=== PATIENT | female | born 1960 | race Caucasian/White ===

== ENCOUNTER → 2017-10-25 | Outpatient (CLI) | payer BC | LOC: CFH 13:25 | PROVIDERS: ATTEND Family Medicine | DX: R07.9 Chest pain, unspecified (principal) | CPT/HCPCS: 71046 ==

== ENCOUNTER 2018-03-01 23:51 | Emergency (ER) | payer BC ==
[~2018-03-01] VITALS: Ht 157.5 cm; Wt 65.0 kg
[2018-03-02] MEDS ORDERED: MORPHINE SULFATE 4 MG/ML, 1ML ONE (00:14)
[2018-03-02] MEDS ORDERED: PROCHLORPERAZINE 5 MG/ML, 2ML ONE (00:24)
[2018-03-02] MEDS ORDERED: PROCHLORPERAZINE 5 MG/ML, 2ML IVPush ONE (00:30)
[2018-03-02] MEDS ORDERED: MORPHINE SULFATE 4 MG/ML, 1ML IVPush PRN (00:30)
[2018-03-02 00:32] LABS: BASOPHILS # (AUTO) 0.05 x10^3/uL (0-0.1); BASOPHILS % (AUTO) 1 % (0-1); EOSINOPHILS # (AUTO) 0.27 x10^3/uL (0-0.4); EOSINOPHILS % (AUTO) 3 % (1-7); LYMPHOCYTES # (AUTO) 2.84 x10^3/uL (1-3.4); LYMPHOCYTES % (AUTO) 27 % (22-44); MD NO; MEAN CORPUSCULAR HEMOGLOBIN 28.5 pg (27.0-34.8); MEAN CORPUSCULAR HGB CONC 33.1 g/dL (32.4-35.8); MEAN CORPUSCULAR VOLUME 86.3 fL (80-100); MEAN PLATELET VOLUME 9.4 fL (7.4-10.4); MONOCYTES # (AUTO) 0.62 x10^3/uL (0.2-0.8); MONOCYTES % (AUTO) 6 % (2-9); NEUTROPHILS # (AUTO) 6.94 x10^3/uL (1.8-6.8); NEUTROPHILS % (AUTO) 65 % (42-75); PLATELET COUNT 221 x10^3/uL (130-400); RED BLOOD COUNT 4.93 x10^6/uL (3.82-5.3); RED CELL DISTRIBUTION WIDTH 13.7 % (9.6-15.2)
[2018-03-02 00:44] LABS: ALANINE AMINOTRANSFERASE 23 U/L (12-78); ALBUMIN 3.4 g/dL (3.4-5.0); ANION GAP 8 mmol/L (5-15); CALCIUM 8.7 mg/dL (8.5-10.1); CHLORIDE 111 mmol/L (98-107); CREATININE 0.91 mg/dL (0.55-1.02)
[2018-03-02 00:47] LABS: ALKALINE PHOSPHATASE 82 U/L (45-117); BILIRUBIN,TOTAL 0.2 mg/dL (0.2-1.0); TOTAL PROTEIN 6.9 g/dL (6.4-8.2)
[2018-03-02 02:03] LABS: CULTURE INDICATED? YES; MICROSCOPIC INDICATED
[2018-03-02 02:13] VITALS: BP 100/49
== END 2018-03-02 03:21 | disposition home or self-care (01) ==
LOC: ED 23:59
DX: N13.2 Hydronephrosis with renal and ureteral calculous obstruction (principal); F17.200 Nicotine dependence, unspecified, uncomplicated
CPT/HCPCS: 36415; 74176; 80053; 81001; 83690; 85025; 87086; 96374; 96375; 99285; J0780

== ENCOUNTER 2018-04-23 00:08 | Inpatient (IN) | payer BC ==
[~2018-04-23] VITALS: Ht 160 cm; Wt 68.6 kg
[2018-04-23 01:00] LABS: BASOPHILS # (AUTO) 0.02 x10^3/uL (0-0.1); BASOPHILS % (AUTO) 0 % (0-1); EOSINOPHILS # (AUTO) 0.34 x10^3/uL (0-0.4); EOSINOPHILS % (AUTO) 3 % (1-7); LYMPHOCYTES # (AUTO) 2.37 x10^3/uL (1-3.4); LYMPHOCYTES % (AUTO) 21 % (22-44); MD NO; MEAN CORPUSCULAR HEMOGLOBIN 28.8 pg (27.0-34.8); MEAN CORPUSCULAR HGB CONC 33.4 g/dL (32.4-35.8); MEAN CORPUSCULAR VOLUME 86.1 fL (80-100); MEAN PLATELET VOLUME 9.1 fL (7.4-10.4); MONOCYTES # (AUTO) 0.51 x10^3/uL (0.2-0.8); MONOCYTES % (AUTO) 4 % (2-9); NEUTROPHILS # (AUTO) 8.32 x10^3/uL (1.8-6.8); NEUTROPHILS % (AUTO) 72 % (42-75); PLATELET COUNT 225 x10^3/uL (130-400); RED BLOOD COUNT 5.05 x10^6/uL (3.82-5.3); RED CELL DISTRIBUTION WIDTH 14.5 % (9.6-15.2)
[2018-04-23] MEDS ORDERED: SODIUM CHLORIDE 0.9% 1,000ML IV ONE (01:00)
[2018-04-23] MEDS ORDERED: KETOROLAC 30 MG/1 ML IVPush ONE (01:00)
[2018-04-23] MEDS ORDERED: MORPHINE SULFATE 4 MG/ML, 1ML IVPush PRN (01:00)
[2018-04-23] MEDS ORDERED: SODIUM CHLORIDE FLUSH 10ML SYR IVF ONE (01:00)
[2018-04-23] MEDS ORDERED: ONDANSETRON ODT 4 MG PO ONE (01:00)
[2018-04-23] MEDS ORDERED: ONDANSETRON ODT 4 MG ONE (01:01)
[2018-04-23] MEDS ORDERED: MORPHINE SULFATE 4 MG/ML, 1ML ONE ×2 (01:02→07:56)
[2018-04-23] MEDS ORDERED: KETOROLAC 30 MG/1 ML ONE (01:02)
[2018-04-23 01:11] LABS: ALANINE AMINOTRANSFERASE 24 U/L (12-78); ALBUMIN 3.7 g/dL (3.4-5.0); ANION GAP 7 mmol/L (5-15); CALCIUM 8.8 mg/dL (8.5-10.1); CHLORIDE 111 mmol/L (98-107); CREATININE 0.99 mg/dL (0.55-1.02)
[2018-04-23 01:13] LABS: ALKALINE PHOSPHATASE 90 U/L (45-117); BILIRUBIN,TOTAL 0.1 mg/dL (0.2-1.0); TOTAL PROTEIN 7.2 g/dL (6.4-8.2)
[2018-04-23] MEDS ORDERED: DIPHENHYDRAMINE 50 MG/ML, 1ML ONE (01:20)
[2018-04-23] MEDS ORDERED: DIPHENHYDRAMINE 50 MG/ML, 1ML IVPush ONE (01:30)
[2018-04-23 01:44] LABS: CULTURE INDICATED? YES; MICROSCOPIC INDICATED
[2018-04-23] MEDS ORDERED: ACETAMINOPHEN 325 MG TABLET PO PRN (03:30)
[2018-04-23] MEDS ORDERED: ONDANSETRON ODT 4 MG PO PRN (03:30)
[2018-04-23] MEDS ORDERED: TEMAZEPAM 15 MG CAPSULE PO PRN (03:30)
[2018-04-23] MEDS ORDERED: DOCUSATE 100 MG CAPSULE PO PRN (03:30)
[2018-04-23] MEDS ORDERED: LABETALOL 5MG/ML, 20ML IVPush PRN (03:30)
[2018-04-23 04:48] VITALS: BP 112/65
[2018-04-23] MEDS: POTASSIUM CHLORIDE 20 MEQ in LACTATED RINGERS 1,000 ML IV SCH ×2 (05:50→20:04)
[2018-04-23 06:53] VITALS: BP 110/64
[2018-04-23] MEDS: FAMOTIDINE 20 MG/2 ML IVPush SCH ×2 (08:02→20:04)
[2018-04-23] MEDS: morphine SULFATE 10 MG/ML, 1ML IVPush PRN ×5 (08:02→23:37)
[2018-04-23] MEDS: ONDANSETRON 2MG/ML, 2ML IVPush PRN (08:13)
[2018-04-23 12:33] VITALS: BP 107/59
[2018-04-23] MEDS ORDERED: EPHEDRINE 50 MG/ML, 1ML ONE (15:42)
[2018-04-23] MEDS ORDERED: MIDAZOLAM 1 MG/ML, 2ML ONE (15:45)
[2018-04-23] MEDS ORDERED: FENTANYL PF 100 MCG/2ML ONE ×2 (15:45→17:23)
[2018-04-23] MEDS ORDERED: DEXAMETHASONE 4 MG/ML, 1ML ONE (15:45)
[2018-04-23] MEDS ORDERED: METOCLOPRAMIDE 5 MG/ML, 2ML ONE (15:45)
[2018-04-23] MEDS ORDERED: ONDANSETRON 2MG/ML, 2ML ONE (15:45)
[2018-04-23] MEDS ORDERED: LIDOCAINE-MPF 2% ,5ML ONE (15:49)
[2018-04-23] MEDS ORDERED: PROPOFOL 10 MG/ML, 20ML ONE (15:50)
[2018-04-23] MEDS ORDERED: OMNIPAQUE 350 MG/ML, 50 ML BOTTLE INJ ONE (16:45)
[2018-04-23] MEDS ORDERED: OXYcodone 5 MG/5 ML ORAL.SOL UDC PO PRN (17:00)
[2018-04-23] MEDS ORDERED: METOCLOPRAMIDE 5 MG/ML, 2ML IV PRN (17:00)
[2018-04-23] MEDS ORDERED: ONDANSETRON 2MG/ML, 2ML IVPush PRN (17:00)
[2018-04-23] MEDS ORDERED: PROMETHAZINE 25 MG/ML, 1ML IV PRN (17:00)
[2018-04-23] MEDS ORDERED: hydrALAzine 20 MG/ML, 1ML IV PRN (17:00)
[2018-04-23] MEDS ORDERED: KETOROLAC 30 MG/1 ML IV PRN (17:00)
[2018-04-23] MEDS ORDERED: ALBUTEROL SULFATE 2.5 MG/3 ML NPPB PRN (17:00)
[2018-04-23] MEDS ORDERED: OMNIPAQUE 350 MG/ML, 50 ML BOTTLE ONE (17:00)
[2018-04-23] MEDS ORDERED: MEPERIDINE/PF 25MG/0.5ML IVPush PRN (17:00)
[2018-04-23] MEDS ORDERED: LABETALOL 5MG/ML, 20ML IV PRN (17:00)
[2018-04-23] MEDS ORDERED: HYDROmorphone 1 MG/ML, 1ML IV PRN (17:00)
[2018-04-23] MEDS ORDERED: OXYcodone 5 MG/5 ML ORAL.SOL UDC ONE (17:23)
[2018-04-23] MEDS: FENTANYL PF 100 MCG/2ML IV PRN ×2 (17:28→17:38)
[2018-04-23 19:11] VITALS: BP 131/76
[2018-04-24 00:04] VITALS: BP 131/79
[2018-04-24 03:50] VITALS: BP 138/81
[2018-04-24] MEDS: ONDANSETRON 2MG/ML, 2ML IVPush PRN (03:58)
[2018-04-24] MEDS: morphine SULFATE 10 MG/ML, 1ML IVPush PRN ×2 (03:58→08:38)
[2018-04-24 04:55] LABS: BASOPHILS # (AUTO) 0.02 x10^3/uL (0-0.1); BASOPHILS % (AUTO) 0 % (0-1); EOSINOPHILS % (AUTO) 0 % (1-7); LYMPHOCYTES # (AUTO) 1.01 x10^3/uL (1-3.4); LYMPHOCYTES % (AUTO) 11 % (22-44); MD NO; MEAN CORPUSCULAR HEMOGLOBIN 28.6 pg (27.0-34.8); MEAN CORPUSCULAR HGB CONC 32.9 g/dL (32.4-35.8); MEAN PLATELET VOLUME 9.4 fL (7.4-10.4); MONOCYTES # (AUTO) 0.26 x10^3/uL (0.2-0.8); MONOCYTES % (AUTO) 3 % (2-9); NEUTROPHILS % (AUTO) 87 % (42-75); PLATELET COUNT 192 x10^3/uL (130-400); RED BLOOD COUNT 4.67 x10^6/uL (3.82-5.3); RED CELL DISTRIBUTION WIDTH 14.3 % (9.6-15.2)
[2018-04-24 05:06] LABS: CHLORIDE 109 mmol/L (98-107)
[2018-04-24 05:14] LABS: ALANINE AMINOTRANSFERASE 21 U/L (12-78); ALBUMIN 2.9 g/dL (3.4-5.0); ALKALINE PHOSPHATASE 77 U/L (45-117); ANION GAP 8 mmol/L (5-15); BILIRUBIN,TOTAL 0.5 mg/dL (0.2-1.0); CALCIUM 8.2 mg/dL (8.5-10.1); CREATININE 1.17 mg/dL (0.55-1.02); TOTAL PROTEIN 6.3 g/dL (6.4-8.2)
[2018-04-24] MEDS: POTASSIUM CHLORIDE 20 MEQ in LACTATED RINGERS 1,000 ML IV SCH (06:03)
[2018-04-24 08:12] VITALS: BP 113/67
[2018-04-24] MEDS: FAMOTIDINE 20 MG/2 ML IVPush SCH (08:39)
[2018-04-24] MEDS ORDERED: OXYC5TAB2 PO (11:26)
[2018-04-24] MEDS ORDERED: DOCU-131 PO (11:26)
[2018-04-24] MEDS ORDERED: ONDA4TAB13 SL (11:26)
[2018-04-24] MEDS ORDERED: ACET325T14 PO (11:26)
== END 2018-04-24 13:50 | disposition home or self-care (01) | DRG 669 ==
LOC: ED 00:54 → EDIP 03:23 → 4NOR 05:00 → DCLOUNGE 04-24 13:22
PROVIDERS: ADMIT Internal Medicine; ATTEND Internal Medicine
PROC: BT1D1ZZ Fluoroscopy of Right Kidney, Ureter and Bladder using Low Osmolar Contrast (ICD-10-PCS; 2018-04-23)
PROC: 0TC68ZZ Extirpation of Matter from Right Ureter, Via Natural or Artificial Opening Endoscopic (ICD-10-PCS; principal; 2018-04-23 15:30)
DX: N13.2 Hydronephrosis with renal and ureteral calculous obstruction (principal); D72.829 Elevated white blood cell count, unspecified; N21.1 Calculus in urethra; Z88.0 Allergy status to penicillin; Z88.3 Allergy status to other anti-infective agents; Z91.018 Allergy to other foods; Z91.013 Allergy to seafood
CPT/HCPCS: 36415; 74176; 74420; 80053; 81001; 82360; 83690; 85025; 87086; 88300; 96360; 96361; 99285; C1726; J1100; J1885; J2250; J2405; J2704; J3010; J3480; J3490; Q0162; Q9967; C1758; J1200; J2270; J2765; J7030; J7120; S0028

== ENCOUNTER 2018-04-25 18:52 | Inpatient (IN) | payer BC ==
[~2018-04-25] VITALS: Ht 160 cm; Wt 66.4 kg
[~2018-04-25 18:52] MED LIST: ACET325T14 PO; DOCU-131 PO; ONDA4TAB13 SL; OXYC5TAB2 PO
[2018-04-25] MEDS ORDERED: IBUPROFEN 200 MG TABLET PO ONE (20:00)
[2018-04-25] MEDS ORDERED: ONDANSETRON ODT 4 MG PO ONE (20:00)
[2018-04-25] MEDS ORDERED: SODIUM CHLORIDE FLUSH 10ML SYR IVF ONE (20:00)
[2018-04-25] MEDS ORDERED: ONDANSETRON ODT 4 MG ONE (20:11)
[2018-04-25] MEDS ORDERED: IBUPROFEN 200 MG TABLET ONE (20:12)
[2018-04-25] MEDS ORDERED: MORPHINE SULFATE 4 MG/ML, 1ML ONE (20:12)
[2018-04-25] MEDS: MORPHINE SULFATE 4 MG/ML, 1ML IVPush PRN ×2 (20:20→21:12)
[2018-04-25 20:41] LABS: CULTURE INDICATED? YES; MICROSCOPIC INDICATED
[2018-04-25 20:57] LABS: BASOPHILS # (AUTO) 0.03 x10^3/uL (0-0.1); BASOPHILS % (AUTO) 0 % (0-1); EOSINOPHILS # (AUTO) 0.13 x10^3/uL (0-0.4); EOSINOPHILS % (AUTO) 1 % (1-7); LYMPHOCYTES # (AUTO) 2.05 x10^3/uL (1-3.4); LYMPHOCYTES % (AUTO) 15 % (22-44); MD NO; MEAN CORPUSCULAR HEMOGLOBIN 29.1 pg (27.0-34.8); MEAN CORPUSCULAR HGB CONC 33.5 g/dL (32.4-35.8); MEAN CORPUSCULAR VOLUME 86.9 fL (80-100); MEAN PLATELET VOLUME 9.3 fL (7.4-10.4); MONOCYTES # (AUTO) 0.93 x10^3/uL (0.2-0.8); MONOCYTES % (AUTO) 7 % (2-9); NEUTROPHILS # (AUTO) 10.21 x10^3/uL (1.8-6.8); NEUTROPHILS % (AUTO) 77 % (42-75); PLATELET COUNT 183 x10^3/uL (130-400); RED CELL DISTRIBUTION WIDTH 14.4 % (9.6-15.2)
[2018-04-25 21:09] LABS: ALANINE AMINOTRANSFERASE 18 U/L (12-78); ALBUMIN 3.3 g/dL (3.4-5.0); ANION GAP 7 mmol/L (5-15); CALCIUM 8.6 mg/dL (8.5-10.1); CHLORIDE 105 mmol/L (98-107)
[2018-04-25 21:12] LABS: ALKALINE PHOSPHATASE 78 U/L (45-117); BILIRUBIN,TOTAL 1.2 mg/dL (0.2-1.0); CREATININE 1.65 mg/dL (0.55-1.02)
[2018-04-25 21:31] LABS: MICROSCOPIC AUTO
[2018-04-25 21:32] LABS: CULTURE INDICATED? NO
[2018-04-25] MEDS ORDERED: SODIUM CHLORIDE 0.9% 1,000ML IVBOLUS ONE (22:00)
[2018-04-25] MEDS ORDERED: CEFTRIAXONE PMX 2GM/50ML 50 ML ONE (22:25)
[2018-04-25] MEDS: CEFTRIAXONE PMX 2GM/50ML 50 ML IV SCH (22:27)
[2018-04-25] MEDS ORDERED: PROMETHAZINE 25 MG/ML, 1ML IM PRN (22:30)
[2018-04-25] MEDS ORDERED: BISACODYL 10 MG SUPP PR PRN (22:30)
[2018-04-25] MEDS ORDERED: ONDANSETRON 2MG/ML, 2ML IVPush PRN (22:30)
[2018-04-25] MEDS ORDERED: ONDANSETRON ODT 4 MG PO PRN (22:30)
[2018-04-25] MEDS ORDERED: hydrALAzine 20 MG/ML, 1ML IVPush PRN (22:30)
[2018-04-25] MEDS ORDERED: morphine SULFATE 10 MG/ML, 1ML IVPush PRN (22:30)
[2018-04-25 22:51] LABS: FREE T4 (FREE THYROXINE) 1.45 ng/dL (0.76-1.46); THYROID STIMULATING HORMONE 1.77 mIU/L (0.358-3.740)
[2018-04-25] MEDS: OXYcodone/APAP 5/325MG TABLET PO PRN (23:18)
[2018-04-25 23:27] LABS: HEMOGLOBIN A1C 5.7 % (4.2-6.3)
[2018-04-25] MEDS: SODIUM CHLORIDE 0.9% 1,000 ML IV SCH (23:29)
[2018-04-25 23:39] VITALS: BP 100/65
[2018-04-26 01:17] VITALS: BP 106/67
[2018-04-26 02:12] LABS: MICROSCOPIC INDICATED
[2018-04-26 02:20] LABS: CULTURE INDICATED? NO
[2018-04-26] MEDS: OXYcodone/APAP 5/325MG TABLET PO PRN ×3 (05:18→19:11)
[2018-04-26] MEDS: SODIUM CHLORIDE 0.9% 1,000 ML IV SCH ×2 (05:19→12:27)
[2018-04-26 05:28] LABS: CHOL/HDL RATIO 3.6; LDL/HDL RATIO 2.1 (0.5-3.0)
[2018-04-26 05:29] LABS: BASOPHILS # (AUTO) 0.09 x10^3/uL (0-0.1); BASOPHILS % (AUTO) 1 % (0-1); EOSINOPHILS # (AUTO) 0.22 x10^3/uL (0-0.4); EOSINOPHILS % (AUTO) 2 % (1-7); LYMPHOCYTES % (AUTO) 28 % (22-44); MD NO; MEAN CORPUSCULAR HEMOGLOBIN 29.4 pg (27.0-34.8); MEAN CORPUSCULAR HGB CONC 33.4 g/dL (32.4-35.8); MEAN CORPUSCULAR VOLUME 87.9 fL (80-100); MEAN PLATELET VOLUME 9.5 fL (7.4-10.4); MONOCYTES # (AUTO) 0.86 x10^3/uL (0.2-0.8); MONOCYTES % (AUTO) 9 % (2-9); NEUTROPHILS # (AUTO) 6.16 x10^3/uL (1.8-6.8); NEUTROPHILS % (AUTO) 61 % (42-75); PLATELET COUNT 158 x10^3/uL (130-400); RED BLOOD COUNT 3.82 x10^6/uL (3.82-5.3); RED CELL DISTRIBUTION WIDTH 14.5 % (9.6-15.2)
[2018-04-26 07:03] VITALS: BP 105/63
[2018-04-26] MEDS: SENNA/DOCUSATE TABLET PO SCH (09:25)
[2018-04-26 13:24] LABS: ALBUMIN 2.4 g/dL (3.4-5.0); ANION GAP 7 mmol/L (5-15); CHLORIDE 111 mmol/L (98-107); CREATININE 1.36 mg/dL (0.55-1.02)
[2018-04-26 13:46] LABS: CALCIUM 7.8 mg/dL (8.5-10.1)
[2018-04-26 14:00] VITALS: BP 102/64
[2018-04-26] MEDS: POLYETHYLENE GLYCOL 17 GM PACKET PO PRN (16:24)
[2018-04-26 18:57] VITALS: BP 100/63
[2018-04-26] MEDS: CEFTRIAXONE PMX 2GM/50ML 50 ML IV SCH (21:02)
[2018-04-27 00:35] VITALS: BP 112/72
[2018-04-27 04:51] LABS: ALBUMIN 2.3 g/dL (3.4-5.0); ANION GAP 7 mmol/L (5-15); CALCIUM 7.8 mg/dL (8.5-10.1); CHLORIDE 111 mmol/L (98-107); CREATININE 1.26 mg/dL (0.55-1.02)
[2018-04-27 05:10] LABS: BASOPHILS # (AUTO) 0.01 x10^3/uL (0-0.1); BASOPHILS % (AUTO) 0 % (0-1); EOSINOPHILS # (AUTO) 0.31 x10^3/uL (0-0.4); EOSINOPHILS % (AUTO) 3 % (1-7); LYMPHOCYTES # (AUTO) 2.13 x10^3/uL (1-3.4); LYMPHOCYTES % (AUTO) 21 % (22-44); MD NO; MEAN CORPUSCULAR HEMOGLOBIN 28.9 pg (27.0-34.8); MEAN CORPUSCULAR HGB CONC 33.1 g/dL (32.4-35.8); MEAN CORPUSCULAR VOLUME 87.3 fL (80-100); MEAN PLATELET VOLUME 9.7 fL (7.4-10.4); MONOCYTES # (AUTO) 0.88 x10^3/uL (0.2-0.8); MONOCYTES % (AUTO) 9 % (2-9); NEUTROPHILS # (AUTO) 6.92 x10^3/uL (1.8-6.8); NEUTROPHILS % (AUTO) 68 % (42-75); PLATELET COUNT 159 x10^3/uL (130-400); RED BLOOD COUNT 3.73 x10^6/uL (3.82-5.3); RED CELL DISTRIBUTION WIDTH 14.3 % (9.6-15.2)
[2018-04-27 07:24] VITALS: BP 101/62
[2018-04-27] MEDS: SENNA/DOCUSATE TABLET PO SCH (08:12)
[2018-04-27 13:16] VITALS: BP 115/70
[2018-04-27] MEDS: ACETAMINOPHEN 325 MG TABLET PO PRN (13:56)
[2018-04-27] MEDS ORDERED: SIMETHICONE 80 MG CHEW TAB PO PRN (18:00)
[2018-04-27 20:50] VITALS: BP 149/76
[2018-04-27] MEDS: CEFTRIAXONE PMX 2GM/50ML 50 ML IV SCH (22:38)
[2018-04-28 02:01] VITALS: BP_SYST 125; BP_SYST 94; BP_DIAS 56; BP_DIAS 81
[2018-04-28] MEDS: ACETAMINOPHEN 325 MG TABLET PO PRN (05:30)
[2018-04-28 05:54] LABS: CHLORIDE 107 mmol/L (98-107)
[2018-04-28 06:00] LABS: BASOPHILS # (AUTO) 0.01 x10^3/uL (0-0.1); BASOPHILS % (AUTO) 0 % (0-1); EOSINOPHILS # (AUTO) 0.31 x10^3/uL (0-0.4); EOSINOPHILS % (AUTO) 3 % (1-7); LYMPHOCYTES % (AUTO) 19 % (22-44); MD NO; MEAN CORPUSCULAR HEMOGLOBIN 28.8 pg (27.0-34.8); MEAN CORPUSCULAR HGB CONC 32.8 g/dL (32.4-35.8); MEAN CORPUSCULAR VOLUME 87.8 fL (80-100); MEAN PLATELET VOLUME 9.6 fL (7.4-10.4); MONOCYTES # (AUTO) 0.87 x10^3/uL (0.2-0.8); MONOCYTES % (AUTO) 9 % (2-9); NEUTROPHILS # (AUTO) 6.94 x10^3/uL (1.8-6.8); NEUTROPHILS % (AUTO) 69 % (42-75); PLATELET COUNT 194 x10^3/uL (130-400); RED CELL DISTRIBUTION WIDTH 14.3 % (9.6-15.2)
[2018-04-28 06:05] LABS: ALANINE AMINOTRANSFERASE 19 U/L (12-78); ALBUMIN 2.2 g/dL (3.4-5.0); ALKALINE PHOSPHATASE 78 U/L (45-117); ANION GAP 7 mmol/L (5-15); BILIRUBIN,TOTAL 0.3 mg/dL (0.2-1.0); CALCIUM 8.2 mg/dL (8.5-10.1); CREATININE 0.78 mg/dL (0.55-1.02); TOTAL PROTEIN 5.7 g/dL (6.4-8.2)
[2018-04-28 07:11] VITALS: BP 91/55
[2018-04-28] MEDS ORDERED: TRAM50TA2 PO (08:17)
[2018-04-28] MEDS ORDERED: POLY17PO5 PO (08:17)
[2018-04-28] MEDS ORDERED: SIME80TA16 PO (08:17)
[2018-04-28] MEDS ORDERED: LEVO750T26 PO (08:17)
[2018-04-28] MEDS ORDERED: SENN1TAB7 PO (08:17)
[2018-04-28] MEDS: SENNA/DOCUSATE TABLET PO SCH (09:15)
[2018-04-28] MEDS: POLYETHYLENE GLYCOL 17 GM PACKET PO PRN (09:15)
== END 2018-04-28 12:09 | disposition home or self-care (01) | DRG 689 ==
LOC: ED 21:52 → EDIP 22:00 → 3NE 22:55
PROVIDERS: ADMIT Internal Medicine; ATTEND Internal Medicine
PROC: 0T9B70Z Drainage of Bladder with Drainage Device, Via Natural or Artificial Opening (ICD-10-PCS; principal; 2018-04-25)
DX: N39.0 Urinary tract infection, site not specified (principal); N17.0 Acute kidney failure with tubular necrosis; E44.0 Moderate protein-calorie malnutrition; K59.00 Constipation, unspecified; Z68.25 Body mass index [BMI] 25.0-25.9, adult; Z80.8 Family history of malignant neoplasm of other organs or systems; Z82.49 Family history of ischemic heart disease and other diseases of the circulatory system; Z83.3 Family history of diabetes mellitus; Z87.442 Personal history of urinary calculi; Z90.710 Acquired absence of both cervix and uterus; Z91.041 Radiographic dye allergy status; Z90.711 Acquired absence of uterus with remaining cervical stump; Z90.89 Acquired absence of other organs; Z88.3 Allergy status to other anti-infective agents; Z88.0 Allergy status to penicillin; Z91.013 Allergy to seafood; Z88.7 Allergy status to serum and vaccine; Z91.018 Allergy to other foods
CPT/HCPCS: 36415; 74021; 74176; 76770; 80053; 80061; 80069; 81001; 83036; 83605; 83735; 84439; 84443; 85025; 87040; 87086; 96374; 96375; 96376; J0696; Q0162; J7030